=== PATIENT | female | born 1975 | race Two or more races ===

== ENCOUNTER 2025-02-19 15:50 | Emergency (ER) | payer MEDICAID, OTHER ==
[~2025-02-19] VITALS: Ht 152.4 cm; Wt 85.0 kg
[~2025-02-19 15:50] MED LIST: METF-370
--- NOTE | 2025-02-19 16:13 | ED.PDOC ---
SOB-HPI HPI Comments A 49 year old female presents to the emergency department for a cough onset 4 weeks ago. Pt reports associated symptoms of chills and shortness of breath. Pt denies associated symptoms of nausea, vomiting, and diarrhea. Pt's vitals are otherwise stable. 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 Pertinent STAVE PLANER TENDER History Constitutional: reports: chills; denies: diaphoresis, fatigue, fever, malaise, sweats, weakness, others EENTM: denies: blurred vision, double vision, ear bleeding, ear discharge, ear drainage, ear pain, ear ringing, eye pain, eye redness, hearing loss, mouth pain, mouth swelling, nasal discharge, nose bleeding, nose congestion, nose pain, photophobia, tearing, throat pain, throat swelling, voice changes, others Respiratory: reports: cough, SOB at rest, shortness of breath, SOB with excertion; denies: hemoptysis, orthopnea, stridor, wheezing, others Cardiovascular: denies: chest pain, dizzy spells, diaphoresis, Dyspnea on exertion, edema, irregular heart beat, left arm pain, lightheadedness, palpit ations, PND, syncope, others Gastrointestinal: denies: abdomen distended, abdominal pain, blood streaked b owels, constipated, diarrhea, dysphagia, difficulty swallowing, hematemesis, melena, nausea, poor appetite, poor fluid intake, rectal bleeding, rectal pain, vomiting, others Genitourinary: denies: abnormal vagina bleeding, burning, dyspareunia, dysuria, flank pain, frequency, hematuria, incontinence, pain, , vagina discharge, urgency, others Neurological: denies: dizziness, fainting, headache, left sided numbness, left sided weakness, numbness, paresthesia, pre-existing deficit, right sided numbness, right sided weakness, seizure, speech problems, tingling, tremors, weakness, others Musculoskeletal: denies: back pain, gout, joint pain, joint swelling, muscle pain, muscle stiffness, neck pain, others Integumetry: denies: bruises, change in color, change in hair/nails, dryness, laceration, lesions, lumps, rash, wounds, others Allergic/Immunocompromised: denies: Difficulty Healing, Frequent Infections, Hives, Itching, others Hematologic/Lymphatic: denies: anemia, blood clots, easy bleeding, easy brui sing, swollen glands, others Endocrine: denies: excessive hunger, excessive sweating, excessive thirst, ex cessive urination, flushing, intolerance to cold, intolerance to heat, unexplained weight gain, unexplained weight loss, others Psychiatric: denies: anxiety, bipolar disorder, depression, hopeless, panic disorder, schizophrenia, sleepless, suicidal, others All Other Systems: Reviewed and Negative Physical Exam General Appearance: No Apparent Distress, Normal HEENT: Normal ENT Inspection, Pharynx Normal, TMs Normal Neck: Full Range of Motion, Non-Tender, Normal, Normal Inspection Respiratory: Chest Non-Tender, Lungs Clear, No Accessory Muscle Use, No Respiratory Distress, Normal Breath Sounds Cardiovascular: No Edema, No JVD, No Murmur, No Gallop, Normal Peripheral Pulses, Regular Rate/Rhythm Breast Exam: Deferred Gastrointestinal: No Organomegaly, Non Tender, No Pulsatile Mass, Normal Bowel Sounds, Soft Genitalia: Deferred Pelvic: Deferred Rectal: Deferred Extremities: No calf tenderness, Normal capillary refill, Normal inspection, Normal range of motion, Non-tender, No pedal edema Musculoskeletal : Apperance: Normal Neurologic: Alert, lean manufacturing specialist II-XII nml as Tested, No Motor Deficits, Normal Affect, Normal Mood, No Sensory Deficits Cerebellar Function: Normal Reflexes: Normal Skin: Dry, Normal Color, Warm Lymphatic: No Adenopathy Was a procedure done? Was a procedure done?: No Differential Dx Differential Diagnosis: Asthma, Bronchitis, Pneumonia, Pneumothorax X-Ray, Labs, Meds, VS Vital Signs Date Time Temp Pulse Resp B/P (MAP) Pulse Ox O2 Delivery O2 Flow Rate FiO2 02/19/25 15:53 98.0 90 20 171/83 94 98.0 Time of 1ST Reevaluation: 16:41 Reevaluation 1ST: Unchanged Patient Education/Counseling: Diagnosis, Treatment, Need For Follow Up Family Education/Counseling: Diagnosis, Treatment, Need For Follow Up SEPSIS Sepsis Screen Date sepsis recognized/suspect: Feb 19, 2025 Time Sepsis recognized/suspect: 1553 Recent Procedure: No On Antibiotic Therapy: No Respiratory Rate >20: No Heart Rate >90: No Temp<36 C (96.8 F) or >38.3 C: No SBP <90 or MAP <65 mmHG: No New Acute Mental Status Change: No Is the patient on CPAP, BIPAP,: No Physician Orders Chest Two Views Routine (02/19/25 16:09) Vital Signs Date Time Temp Pulse Resp B/P (MAP) Pulse Ox O2 Delivery O2 Flow Rate FiO2 02/19/25 15:53 98.0 90 20 171/83 94 98.0 Departure 1 Departure Time of Disposition: 16:45 Impression: Primary Impression: Acute bronchitis Qualified Codes: J20.9 - Acute bronchitis, unspecified Disposition: 01 HOME / SELF CARE / HOMELESS Condition: Stable e-Prescriptions Azithromycin (Zithromax Z-Shane) 250 Mg Tab 250 MG PO DAILY for 5 Days, #5 TAB Prov: AKBAR SALCEDO 02/19/25 Montelukast Sodium (Singulair) 10 Mg Tab 10 MG PO DAILY PRN, #30 TAB Prov: AKBAR SALCEDO 02/19/25 Benzonatate (Benzonatate) 200 Mg Cap 1 CAP PO TIDP PRN, #30 CAP Prov: AKBAR SALCEDO 02/19/25 Discharged With: Self Critical Care Note Critical Care Time?: No Stability Stability form required: No Heart Score Heart Score: Heart Score Response (Comments) Value History N/A 0 EKG N/A 0 Age N/A 0 Risk Factors N/A 0 Troponin N/A 0 Total 0 I personally scribed for AKBAR SALCEDO ([email or web address]) on 02/19/25 at 16:13. Electronically submitted by Akila AguilarCO[facility] MED[facility] CENTERCORTEZ). AKBAR SALCEDO Feb 19, 2025 16:13
--- NOTE | 2025-02-19 16:38 | DVH ---
CHEST RADIOGRAPH INDICATION: cough TECHNIQUE: Two views of the chest was obtained. COMPARISON: None FINDINGS: No focal consolidation. No significant pleural effusion. No pneumothorax. Nonenlarged cardiomediastinal silhouette. IMPRESSION: No acute pulmonary process.
[2025-02-19] MEDS ORDERED: AZITTAB PO (16:49)
[2025-02-19] MEDS ORDERED: MONT10TA23 PO (16:49)
[2025-02-19] MEDS ORDERED: BENZ200C64 PO (16:49)
[2025-02-19 17:34] VITALS: BP 144/87; PULSE 68; RESP 16; TEMP 98.7; O2SAT 96
== END 2025-02-19 17:36 | disposition home or self-care (01) ==
LOC: ER 15:50
DX: J20.9 Acute bronchitis, unspecified (principal)
CPT/HCPCS: 71046